=== PATIENT | female | born 1995 | race Caucasian/White ===

== ENCOUNTER 2022-02-06 21:44 | Emergency (ER) | payer MEDICAID, SELFPAY ==
[2022-02-06 21:45] VITALS: BP 107/70; PULSE 124; RESP 20; TEMP 37.2; O2SAT 97; BMI 38.5
[2022-02-06 21:52] VITALS: TEMP 38.4
[2022-02-06] MEDS: Acetaminophen 500 MG Tablet 1000 MG PO (22:39)
--- NOTE | 2022-02-06 22:44 | RAD_ITS ---
STUDY: X-RAY CHEST REASON FOR EXAM: Female, 26 years old. cough TECHNIQUE: Frontal and lateral views of the chest. COMPARISON: None. FINDINGS: The lungs are clear and expanded. There is no demonstrated pleural abnormality. Normal size heart. Normal mediastinum and iris. Normal visualized pulmonary arteries. Normal visualized aortic arch and descending thoracic aorta. Normal visualized thoracic spine. Normal visualized ribs, clavicles, and shoulders. There is no demonstrated abnormality of the visualized soft tissue structures of the upper abdomen. RAD/Chest PA and Lateral IMPRESSION: Normal x-ray examination of the chest. Electronically Signed: Vinh Jerome MD at 23:01 EST ,
--- NOTE | 2022-02-06 22:53 | EDS_ITS ---
HPI History of Present Illness Chief Complaint: Cough Narrative Narrative: Patient is a 26-year-old female who reports a past medical history of hiatal hernia as well as depression. 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 She states in the last 24 to 36 hours she has had headache fevers chills congestion cough and sore throat. She states she is concerned for infection secondary to this and therefore comes in for evaluation. PFSH PFS Home Medications bupropion HCl 75 mg tablet 75 mg PO BID 02/06/22 [History Last Taken Unknown] oseltamivir 75 mg capsule (Tamiflu) 75 mg PO BID 5 days #10 caps 02/06/22 [Rx Last Taken Unknown] Allergy/AdvReac Type Severity Reaction Status Date / Time No Known Allergies Allergy Verified 02/06/22 21:48 Social History Smoking Status: Never smoker ROS ROS ED Constitutional Constitutional ED: Reports chills and fever(s) ENT ENT ED: Reports rhinorrhea and sore throat Cardiovascular Cardiovascular: Denies chest pain Respiratory/Chest Respiratory/Chest: Reports cough; Denies dyspnea Gastrointestinal Gastrointestinal: Denies abdominal pain, diarrhea, nausea or vomiting Genitourinary Genitourinary ED: Denies dysuria Musculoskeletal Musculoskeletal: Reports myalgias Integumentary Denies rash Neurologic Neurologic: Reports headache(s) Hematologic/Lymphatic Hematologic/Lymphatic: Denies easy bleeding or easy bruising EXAM Physical Exam Const Vital Signs: 02/06/22 21:45 02/06/22 21:52 02/06/22 21:52 Temperature 99.0 F 101.1 F H Temperature Source Temporal Oral Pulse Rate 124 H Respiratory Rate 20 H Respiratory Effort Short of Breath Respiratory Pattern Normal Blood Pressure 107/70 Blood Pressure Mean 82 Pulse Ox 97 Oxygen Delivery Method Room Air 02/06/22 21:53 Temperature Temperature Source Pulse Rate Respiratory Rate Respiratory Effort Short of Breath Respiratory Pattern Normal Blood Pressure Blood Pressure Mean Pulse Ox Oxygen Delivery Method Room Air Positive well nourished and well developed General Appearance ED: well developed HEENT Reports moist mucous membranes HEENT Narrative: Nasal mucosa is hyperemic and boggy with enlarged inferior nasal turbinates. There is cobblestoning the posterior pharynx consistent with sinus drainage without airway edema or compromise. Eyes PERRL and EOMs intact bilaterally Neck supple Neck Narrative: Positive anterior cervical lymphadenopathy noted Resp normal respiratory effort Resp Narrative: Breath sounds are slight diminished throughout with faint expiratory wheeze in bilateral lower lobes otherwise no nasal flaring retractions tachypnea or accessory muscle use Cardio regular rhythm Rate: tachycardic Extremity normal to inspection Extremity Narrative: No asymmetric edema no pitting edema negative Homans' sign bilaterally Neuro oriented x3 and CN's II-XII intact bilaterally Sensorium / Orientation: alert Psych mental status grossly normal Skin no rashes or lesions noted MDM MDM MDM Narrative Medical decision making narrative: Patient presented to the ER with low-grade fever and constellation of symptoms most consistent with viral infection. Secondary to this viral swabs and the chest x-ray were obtained. Chest x-ray revealed no acute infiltrate and influenza swab was positive consistent with her exam and history. At this time she is not requiring supplemental oxygen and she is not in respiratory distress and therefore there is no need for further work-up or placement in the hospital and she is otherwise safe for discharge. Radiography Diagnostic Testing: Clinical Impression(s) from Imaging Studies Chest X-Ray 02/06/22 22:44 IMPRESSION: Normal x-ray examination of the chest. Electronically Signed: Vinh Jerome MD at 23:01 EST Reading Location ID and State: [facility] / [place] , Service support , Chest x-ray as interpreted by the emergency medicine physician reveals no acute infiltrate pneumothorax or pleural effusion Discharge Plan Triage Chief Complaint: Cough ED Provider: Chadd Castro Dx/Rx/DC Orders Clinical Impression: Influenza A, Pyrexia Instructions: ED Fever Control (Adult), ED Influenza (Adult) Prescriptions: New oseltamivir [Tamiflu] 75 mg capsule 75 mg PO BID 5 Days Qty: 10 0RF No Action bupropion HCl 75 mg tablet 75 mg PO BID Stand Alone Forms: ED Work / School Excuse Primary Care Provider: Care Physician,No Primary Referrals: Sabrina Powers MD [Med Staff - [employer]] - Care Physician,No Primary [Primary Care Provider] - Activity Restrictions/Additional Instructions: Please keep yourself well-hydrated use Tylenol and Motrin for fever control and return to the ER should you have any further concerns Disposition Disposition: Home, Self Care
[2022-02-06 23:39] VITALS: TEMP 37.9
== END 2022-02-06 23:40 | disposition home or self-care (01) ==
PROVIDERS: Emergency Provider Emergency Medicine; Visit Provider Emergency Medicine
DX: J10.1 Influenza due to other identified influenza virus with other respiratory manifestations (principal); Z79.899 Other long term (current) drug therapy
CPT/HCPCS: 71046; 87428; 99283

== ENCOUNTER 2022-03-01 19:03 | Emergency (ER) | payer MEDICAID, SELFPAY ==
[2022-03-01 19:04] VITALS: BP 123/74; PULSE 90; RESP 17; TEMP 36.2; O2SAT 100; BMI 37.5
--- NOTE | 2022-03-01 19:33 | EKG12_ITS ---
Test Reason : CP Blood Pressure : / mmHG Vent. Rate : 081 BPM Atrial Rate : 081 BPM P-R Int : 158 ms QRS Dur : 088 ms QT Int : 374 ms P-R-T Axes : 057 018 038 degrees QTc Int : 434 ms Normal sinus rhythm Normal ECG Confirmed by APRIL EWING MD ([id number]), editorial manager JOSEPH BEARD ([id number]) on 03/03/2022 1:49:51 PM Referred By: VU Confirmed By:APRIL EWING MD
--- NOTE | 2022-03-01 19:34 | ED.VIS.CHEST ---
HPI History of Present Illness Chief Complaint: Chest Pain Narrative Narrative: 26-year-old female who denies significant past medical history presents with chest pain and shortness of breath. She relates history that approximately 2 weeks ago, she was seen in the emergency department and was diagnosed with influenza. She had multiple influenza type symptoms and she states that they did an x-ray of her lungs which showed that they were inflamed. She got through that respiratory illness and then a week ago she began having symptoms again after feeling better for approximately 3 days. She did a home COVID test and it was positive on Thursday, approximately 6 days ago. She quarantine for 5 days, and went back to work. She had to wear a mask all day and states that now she has chest pain when she tries to breathe that is in the middle of her chest and radiates outward. It hurts more when she coughs as well. She denies any nausea or vomiting. No diaphoresis. No CAD or DVT/PE risk factors. She is concerned because of her shortness of breath that has continued and the previous x-ray that showed inflamed lungs. PFSH PFS Medical History no medical history Home Medications bupropion HCl 75 mg tablet 75 mg PO BID 02/06/22 [History Last Taken Unknown] oseltamivir 75 mg capsule (Tamiflu) 75 mg PO BID 5 days #10 caps 02/06/22 [Rx Last Taken Unknown] Allergy/AdvReac Type Severity Reaction Status Date / Time No Known Allergies Allergy Verified 03/01/22 19:07 Social History Smoking Status: Never smoker ROS ROS ED ROS Narrative Constitutional: No fever, no chills. HEENT: No sore throat. No neck pain. No loss of vision. No rhinorrhea. Cardiovascular: Positive midsternal, radiating outward type of chest pain. No palpitations. No pedal edema. Respiratory: Occasional cough, positive shortness of breath. Abdominal: No abdominal pain. No nausea. No vomiting. Genitourinary: No dysuria. No hematuria. Musculoskeletal: No myalgias. No arthralgias. Neurologic: No headaches. No dizziness. No lightheadedness. Skin: No rash. No change in color. Psychiatric: No depression. No anxiety. EXAM Physical Exam Narrative Exam Narrative: Afebrile. Vital signs noted. Nontoxic-appearing. HEENT: Normocephalic. Atraumatic. PERRL, EOMI. Neck soft and supple. No point tenderness or step off. Cardiovascular: Regular rate and rhythm. No murmurs, rubs, or gallops appreciated. Respiratory: No tachypnea. Lungs clear to auscultation bilaterally. Gastrointestinal: Abdomen soft, nontender, with normoactive bowel sounds. No rebound or guarding. Neurological: Awake. Alert. Nonfocal, nonlateralizing. Skin: No rash. Normal color. No pallor. Musculoskeletal: No pedal edema. Full range of motion extremities. Const Vital Signs: 03/01/22 19:04 03/01/22 19:17 Temperature 97.1 F L Temperature Source Oral Pulse Rate 90 Respiratory Rate 17 Respiratory Effort Short of Breath Blood Pressure 123/74 H Blood Pressure Mean 90 Pulse Ox 100 Oxygen Delivery Method Room Air MDM MDM MDM Narrative Medical decision making narrative: I reviewed the patient's x-ray in the EMR. Currently her pulse ox is 100% on room air. EKG was obtained and interpreted by myself which demonstrates normal sinus rhythm at 81 bpm without ectopy or acute ST changes. No STEMI. I do not feel that laboratory work is indicated such as troponin as she is low risk for coronary artery disease and her pain sounds more like costochondritis/chest wall pain. I will obtain a 2 view chest x-ray. Chest x-ray interpreted by myself shows no acute process, no pneumonia or pneumothorax. At this point in time, I feel she be discharged safely home with follow-up. Return instructions to the emergency department were reviewed. Disposition is discharged home in stable condition. Radiography Chest X-Ray - ED: Read by ED Physician Diagnostic Testing: Clinical Impression(s) from Imaging Studies Chest X-Ray 03/01/22 19:52 IMPRESSION: No radiographic evidence of acute cardiopulmonary disease. Electronically Signed: Irving Avila MD at 20:27 EST , Discharge Plan Triage Chief Complaint: Chest Pain ED Provider: Robert Benitez Dx/Rx/DC Orders Clinical Impression: Costochondritis, Chest pain, Shortness of breath Instructions: ED Chest Wall Pain, Costochondritis, ED Dyspnea Prescriptions: No Action bupropion HCl 75 mg tablet 75 mg PO BID oseltamivir [Tamiflu] 75 mg capsule 75 mg PO BID 5 Days Qty: 10 0RF Primary Care Provider: Care Physician,No Primary Referrals: Care Physician,No Primary [Primary Care Provider] - Disposition Disposition: Home, Self Care
--- NOTE | 2022-03-01 19:52 | RAD_ITS ---
INDICATION: Shortness of Breath EXAMINATION/TECHNIQUE: X-RAY - XR Chest 2 Views COMPARISON: February 06, 2022 FINDINGS: LINES/DEVICES: None. LUNGS: No consolidation, edema or effusion. No pneumothorax. MEDIASTINUM AND CARDIOVASCULAR STRUCTURES: Cardiac silhouette not enlarged. Central airways and mediastinal contour are unremarkable. BONES AND SOFT TISSUES: Unremarkable. No significant change since prior exam RAD/Chest PA and Lateral IMPRESSION: No radiographic evidence of acute cardiopulmonary disease. Electronically Signed: Irving Avila MD at 20:27 EST ,
== END 2022-03-01 21:10 | disposition home or self-care (01) ==
PROVIDERS: Emergency Provider Emergency Medicine; Visit Provider Emergency Medicine
DX: M94.0 Chondrocostal junction syndrome [Tietze] (principal); R07.9 Chest pain, unspecified; R06.02 Shortness of breath
CPT/HCPCS: 71046; 93005; 99282